=== PATIENT | male | born 1945 | race Caucasian/White ===

== ENCOUNTER 2022-11-13 22:47 | Inpatient (IN) | payer MEDICARE, BC ==
[~2022-11-13] VITALS: Ht 177.8 cm; Wt 76.4 kg
[2022-11-14] VITALS (11 sets, daily range): BP systolic 120–152; BP diastolic 53–81
[2022-11-14] MEDS ORDERED: fentaNYL/PF 50MCG/1 ML 2ML syringe IV ONE (01:10)
[2022-11-14 01:29] LABS: BASOPHILS # (AUTO) 0.1 X10'3 (0-0.2); BASOPHILS % (AUTO) 0.8 % (0-1); EOSINOPHILS # (AUTO) 0.2 X10'3 (0-0.9); EOSINOPHILS % (AUTO) 1.7 % (0-6); HEMATOCRIT 36.4 % (42.0-52.0); HEMOGLOBIN 11.9 g/dl (14.0-17.9); LYMPHOCYTES # (AUTO) 1.3 X10'3 (1.1-4.8); LYMPHOCYTES % (AUTO) 10.9 % (21-51); MEAN CORPUSCULAR HEMOGLOBIN 26.9 PG (27.0-31.0); MEAN CORPUSCULAR HGB CONC 32.6 g/dL (33.0-36.5); MEAN CORPUSCULAR VOLUME 82.7 FL (78-98); MONOCYTES # (AUTO) 0.6 X10'3 (0-0.9); MONOCYTES % (AUTO) 5.4 % (2-12); NEUTROPHILS # (AUTO) 9.7 X10'3 (1.8-7.7); NEUTROPHILS % (AUTO) 81.2 % (42-75); PLATELET COUNT 357 X10'3 (140-440); RED CELL DISTRIBUTION WIDTH 18.9 % (11.5-14.5)
[2022-11-14 01:42] LABS: APTT 46 SECONDS (22-32)
[2022-11-14 01:44] LABS: ALBUMIN 3.1 G/DL (3.4-5.0); ALBUMIN/GLOBULIN RATIO 0.7 (1.1-1.5); ANION GAP 9 (8-16); ASPARTATE AMINO TRANSFERASE 22 U/L (10-37); BILIRUBIN,TOTAL 0.2 MG/DL (0.1-1.0); BLOOD UREA NITROGEN 23 MG/DL (7-18); BUN/CREATININE RATIO 24.7 (10.0-20.0); CHLORIDE 104 MMOL/L (99-107); CREATININE 0.93 MG/DL (0.60-1.10); GLUCOSE 161 MG/DL (70-104); POTASSIUM 4.8 MMOL/L (3.5-5.1); SODIUM 142 MMOL/L (135-145); TOTAL CARBON DIOXIDE 28.6 MMOL/L (24-32); TOTAL PROTEIN 7.8 G/DL (6.4-8.2); eGFR 79 ML/MIN
[2022-11-14 01:45] LABS: ALANINE AMINOTRANSFERASE 34 U/L (12-78); ALKALINE PHOSPHATASE 95 IU/L (46-116)
[2022-11-14] MEDS ORDERED: morphine 4 MG/ML inj SYRINge IV ONE (02:15)
[2022-11-14] MEDS ORDERED: magnesium hydroxide 30ml (MOM) UD suspension PO PRN (02:35)
[2022-11-14] MEDS ORDERED: diphenhydrAMINE 25mg capsule PO PRN (02:35)
[2022-11-14] MEDS ORDERED: acetaminophen 325mg tablet PO PRN (02:35)
[2022-11-14] MEDS ORDERED: magnesium 4gm in 100ml NS 100 ML IV PRN (02:35)
[2022-11-14] MEDS ORDERED: potassium Cl 40MEQ/1/2NS 520ml 520 ML IV PRN (02:35)
[2022-11-14] MEDS ORDERED: morphine 2 MG/ML inj. syringe IV PRN ×7 (02:35→16:55)
[2022-11-14] MEDS ORDERED: potassium Cl 20 mEq SR tablet PO PRN ×2 (02:35)
[2022-11-14] MEDS ORDERED: ondansetron/PF 4mg/2ml inj IV PRN ×3 (02:35→16:55)
[2022-11-14] MEDS ORDERED: mag hydrox/Alum hydrox/simeth 30ml oral suspension PO PRN (02:35)
[2022-11-14] MEDS ORDERED: ACET-1025 PO (02:39)
[2022-11-14] MEDS ORDERED: NEOM30OI17 TOP (02:39)
[2022-11-14] MEDS ORDERED: IBUP-1984 PO (02:39)
[2022-11-14] MEDS ORDERED: DEXTROSE 15 GM of carb/4 tabs (each vial/BOTTLE has 4 tablets) PO PRN ×2 (02:40)
[2022-11-14] MEDS ORDERED: glucagon, human recombinant 1mg kit SUBCUT PRN (02:40)
[2022-11-14] MEDS ORDERED: MESSAGE TO PHARMACY PO ONE (02:40)
[2022-11-14] MEDS ORDERED: dextrose 50%-water 50ml dispensing syringe IV PRN ×2 (02:40)
[2022-11-14 02:42] LABS: PLATELET ESTIMATE NORMAL; ROULEAUX 1+
[2022-11-14 02:43] LABS: ELLIPTOCYTES FEW; POIKILOCYTOSIS FEW
[2022-11-14 02:44] LABS: ANISOCYTOSIS 2+
[2022-11-14 03:00] LABS: HEMOGLOBIN A1C 7.5 % (4.5-6.2)
[2022-11-14] MEDS: potassium cl 20mEq in 1/2 NS 1,000 ML IV SCH ×2 (03:59→22:35)
[2022-11-14 04:18] LABS: CLARITY,URINE CLEAR (Clear); COLOR,URINE YELLOW (Yellow); GLUCOSE, URINE >=1000 mg/dl (Neg); KETONES,URINE TRACE mg/dl (Neg); LEUKOCYTE ESTERASE ,URINE NEGATIVE (Neg); NITRITES, URINE NEGATIVE (Neg); OCCULT BLOOD,URINE NEGATIVE (Neg); PH,URINE 5.5 (4.8-8.0); PROTEIN,URINE NEGATIVE (Neg); UROBILINOGEN,URINE 0.2 E.U/dL (0.2-1.0)
[2022-11-14 04:24] LABS: UA COLLECTION TYPE URINAL
[2022-11-14 04:25] LABS: WBC,URINE 0-4 /HPF (0-4)
[2022-11-14 04:26] LABS: BACTERIA,URINE FEW /HPF (Neg); RBC,URINE 0-2 /HPF (0-2); SQUAMOUS EPITHELIAL CELL,UR FEW /LPF (FEW)
[2022-11-14 06:16] LABS: MAGNESIUM 1.5 MG/DL (1.5-2.4)
--- NOTE | 2022-11-14 07:45 | NUR ---
Received report from ED RNSai
[2022-11-14] MEDS: enoxaparin 100mg/ml syringe SUBCUT SCH ×2 (08:00→20:14)
[2022-11-14] MEDS: K and/or MAG REPLACEMENT MC SCH ×2 (08:00→20:00)
[2022-11-14] MEDS: sodium chloride 0.45% 1,000 ML IV SCH (09:03)
[2022-11-14] MEDS: docusate sod 100mg capsule PO SCH ×2 (09:04→20:14)
[2022-11-14] MEDS: morphine 4 MG/ML inj SYRINge IV PRN ×2 (09:04→13:20)
[2022-11-14 09:14] LABS: BASOPHILS # (AUTO) 0.1 X10'3 (0-0.2); BASOPHILS % (AUTO) 0.6 % (0-1); EOSINOPHILS # (AUTO) 0.2 X10'3 (0-0.9); EOSINOPHILS % (AUTO) 2.1 % (0-6); HEMATOCRIT 35.5 % (42.0-52.0); HEMOGLOBIN 11.3 g/dl (14.0-17.9); LYMPHOCYTES # (AUTO) 1.2 X10'3 (1.1-4.8); LYMPHOCYTES % (AUTO) 11.1 % (21-51); MEAN CORPUSCULAR HEMOGLOBIN 26.2 PG (27.0-31.0); MEAN CORPUSCULAR HGB CONC 31.9 g/dL (33.0-36.5); MEAN PLATELET VOLUME 7.1 FL (7.4-10.4); MONOCYTES % (AUTO) 8.5 % (2-12); NEUTROPHILS # (AUTO) 8.7 X10'3 (1.8-7.7); NEUTROPHILS % (AUTO) 77.7 % (42-75); PLATELET COUNT 334 X10'3 (140-440); RED BLOOD COUNT 4.33 X10'6 (4.70-6.10); RED CELL DISTRIBUTION WIDTH 18.7 % (11.5-14.5); WHITE BLOOD COUNT 11.2 X10'3 (4.5-11.0)
[2022-11-14 09:25] LABS: ALANINE AMINOTRANSFERASE 24 U/L (12-78); ALBUMIN 3.1 G/DL (3.4-5.0); ALBUMIN/GLOBULIN RATIO 0.7 (1.1-1.5); ALKALINE PHOSPHATASE 92 IU/L (46-116); ANION GAP 9 (8-16); ASPARTATE AMINO TRANSFERASE 24 U/L (10-37); BILIRUBIN,TOTAL 0.3 MG/DL (0.1-1.0); CALCIUM 8.8 MG/DL (8.5-10.1); CHLORIDE 103 MMOL/L (99-107); CREATININE 0.73 MG/DL (0.60-1.10); GLUCOSE 142 MG/DL (70-104); POTASSIUM 4.3 MMOL/L (3.5-5.1); SODIUM 139 MMOL/L (135-145); TOTAL CARBON DIOXIDE 26.9 MMOL/L (24-32); TOTAL PROTEIN 7.8 G/DL (6.4-8.2); eGFR > 90 ML/MIN
[2022-11-14 09:29] LABS: BLOOD UREA NITROGEN 24 MG/DL (7-18); BUN/CREATININE RATIO 32.9 (10.0-20.0)
[2022-11-14] MEDS ORDERED: TRAZ-251 PO (13:35)
[2022-11-14] MEDS ORDERED: SOTA80TA46 PO (13:35)
[2022-11-14] MEDS ORDERED: NATE120T6 PO (13:35)
[2022-11-14] MEDS ORDERED: ATOR80TA PO (13:35)
[2022-11-14] MEDS ORDERED: WARF-55 PO (13:35)
[2022-11-14] MEDS ORDERED: LISI20TA28 PO (13:35)
[2022-11-14] MEDS ORDERED: DAPA5TAB PO (13:35)
[2022-11-14] MEDS ORDERED: METF-436 PO (13:35)
[2022-11-14] MEDS ORDERED: traZODone 50mg tablet PO PRN (14:40)
[2022-11-14] MEDS ORDERED: lisinopril 20mg tablet PO SCH (14:40)
[2022-11-14] MEDS ORDERED: ROPIVAcaine 0.5% (5mg/ml) 30ml vial ONE ×2 (16:39)
[2022-11-14] MEDS ORDERED: vancomycin 1,000mg inj ONE (16:40)
[2022-11-14] MEDS ORDERED: meperidine/PF 25mg/ml syringe IV PRN ×3 (16:50)
[2022-11-14] MEDS ORDERED: ringers solution, lacted 1,000 ML IV SCH ×2 (16:50→16:55)
[2022-11-14] MEDS ORDERED: morphine 4 MG/ML inj SYRINge IV PRN ×2 (16:50→16:55)
[2022-11-14] MEDS ORDERED: tranexamic acid inj. 1,000 MG in normal saline 100ml IV soln 90 ML IV ONE (16:50)
[2022-11-14] MEDS ORDERED: proCHLORperazine 10 MG/2 ml inj IV PRN (16:50)
[2022-11-14] MEDS ORDERED: fentaNYL/PF 50MCG/1 ML 2ML syringe IV PRN ×2 (16:55)
[2022-11-14] MEDS ORDERED: labetalol 20mg/4ml (5mg/ml) syringe IV PRN (16:55)
[2022-11-14] MEDS ORDERED: hydrALAZINE 20mg/ml inj. IV PRN (16:55)
[2022-11-14] MEDS ORDERED: midazolam 1 mg/ML 2ml injection ONE (16:57)
[2022-11-14] MEDS ORDERED: fentaNYL /PF 50mcg/ml 5ml ampule ONE (16:57)
[2022-11-14] MEDS ORDERED: propofol inj 20 ML IV ONE (17:26)
[2022-11-14] MEDS ORDERED: ceFAZolin 1000mg inj ONE ×2 (17:26)
[2022-11-14] MEDS ORDERED: albumin (Human) 5% 250ml 250 ML IV ONE (17:27)
--- NOTE | 2022-11-14 18:14 | NUR ---
Received from OR via HOSPITAL BED, accompanied by Anesthesiologist and report given by Anesthesiologist. PT WAKING UP. NO S/S OF PAIN. VSS. PT PRESENTS WITH PIV 20G LEFT FOREARM, RIGHT HIP MAUREEN DRESSING C/D/I, RIGHT DISTAL PULSE NOTED. STRATTON CATHETER DRAINING CLEAR YELLOW URINE. Addendum: 11/14/22 at 1827 by Juan Diego Oliva RN Amended: Links added.
--- NOTE | 2022-11-14 18:20 | NUR ---
Problems reprioritized. Patient report given, questions answered & plan of care reviewed with JAYNE Baptiste.
--- NOTE | 2022-11-14 18:44 | NUR ---
PATIENT HAS MET ALL CRITERIA FOR TRANSFER TO THE SURGICAL FLOOR. VSS. DRESSINGS INTACT. BED LOW, CALL LIGHT PRESENT AND 2 RAILS UP. RN PRESENT TO ACCEPT CARE OF PATIENT AND REPORT HAS BEEN CALLED. ALL QUESTIONS ANSWERED TO ACCEPTING RN. Addendum: 11/14/22 at 1859 by Juan Diego Oliva RN Amended: Links added.
[2022-11-14] MEDS: sotalol 80mg tablet PO SCH (20:14)
[2022-11-14] MEDS: insulin glargine (Lantus) pen - multi-dose SQ SCH (21:00)
[2022-11-15] MEDS: HYDROcodone/acetaminophen 10/325mg tab PO PRN ×5 (01:42→22:44)
[2022-11-15] MEDS: sodium chloride 0.45% 1,000 ML IV SCH (04:08)
[2022-11-15 05:00] VITALS: BP 100/62
[2022-11-15 05:31] LABS: ALANINE AMINOTRANSFERASE 29 U/L (12-78); ALBUMIN 2.8 G/DL (3.4-5.0); ALBUMIN/GLOBULIN RATIO 0.7 (1.1-1.5); ALKALINE PHOSPHATASE 74 IU/L (46-116); ANION GAP 10 (8-16); ASPARTATE AMINO TRANSFERASE 50 U/L (10-37); BILIRUBIN,TOTAL 0.7 MG/DL (0.1-1.0); BLOOD UREA NITROGEN 20 MG/DL (7-18); BUN/CREATININE RATIO 33.9 (10.0-20.0); CALCIUM 8.1 MG/DL (8.5-10.1); CHLORIDE 98 MMOL/L (99-107); CREATININE 0.59 MG/DL (0.60-1.10); GLUCOSE 153 MG/DL (70-104); MAGNESIUM 1.2 MG/DL (1.5-2.4); POTASSIUM 4.1 MMOL/L (3.5-5.1); SODIUM 134 MMOL/L (135-145); TOTAL CARBON DIOXIDE 26.2 MMOL/L (24-32); TOTAL PROTEIN 6.8 G/DL (6.4-8.2); eGFR > 90 ML/MIN
[2022-11-15 05:40] LABS: BASOPHILS # (AUTO) 0.1 X10'3 (0-0.2); BASOPHILS % (AUTO) 0.4 % (0-1); EOSINOPHILS # (AUTO) 0.1 X10'3 (0-0.9); EOSINOPHILS % (AUTO) 0.9 % (0-6); HEMATOCRIT 31.1 % (42.0-52.0); LYMPHOCYTES # (AUTO) 1.3 X10'3 (1.1-4.8); LYMPHOCYTES % (AUTO) 9.6 % (21-51); MEAN CORPUSCULAR HEMOGLOBIN 26.5 PG (27.0-31.0); MEAN CORPUSCULAR HGB CONC 32.1 g/dL (33.0-36.5); MEAN CORPUSCULAR VOLUME 82.6 FL (78-98); MEAN PLATELET VOLUME 7.1 FL (7.4-10.4); MONOCYTES % (AUTO) 7.3 % (2-12); NEUTROPHILS # (AUTO) 10.7 X10'3 (1.8-7.7); NEUTROPHILS % (AUTO) 81.8 % (42-75); PLATELET COUNT 340 X10'3 (140-440); RED BLOOD COUNT 3.77 X10'6 (4.70-6.10); RED CELL DISTRIBUTION WIDTH 18.1 % (11.5-14.5); WHITE BLOOD COUNT 13.1 X10'3 (4.5-11.0)
--- NOTE | 2022-11-15 06:40 | NUR ---
Patient in room [facility]. I have received report from JAYNE Baptiste and had the opportunity to ask questions and assume patient care.
[2022-11-15] MEDS: sotalol 80mg tablet PO SCH ×2 (07:57→19:13)
[2022-11-15] MEDS: lisinopril 20mg tablet PO SCH (07:57)
[2022-11-15] MEDS ORDERED: Dapagliflozin Propanediol (Farxiga) 5 MG PO SCH (08:00)
[2022-11-15] MEDS: K and/or MAG REPLACEMENT MC SCH ×2 (08:04→20:00)
[2022-11-15] MEDS: normal saline 1000ml 1,000 ML IV SCH (08:16)
[2022-11-15] MEDS: atorvastatin 20mg tablet PO SCH (08:17)
[2022-11-15] MEDS: docusate sod 100mg capsule PO SCH ×2 (08:19→19:13)
[2022-11-15] MEDS: magnesium Cl slow-release 64mg tablet PO PRN ×2 (08:20→19:21)
[2022-11-15] MEDS: enoxaparin 100mg/ml syringe SUBCUT SCH ×2 (08:27→19:14)
--- NOTE | 2022-11-15 08:59 | NUR ---
Per EMR pt with T2DM, well controlled for geriatric age with A1c 7.5%. DM education not warranted at this time. Will continue to follow. Addendum: 11/15/22 at [address] Amended: Links added.
[2022-11-15 10:00] VITALS: BP 119/58
[2022-11-15 17:00] VITALS: BP 117/60
[2022-11-15] MEDS: insulin Lispro (HumaLOG) vial - multi-dose SQ SCH (19:16)
[2022-11-15] MEDS: insulin glargine (Lantus) pen - multi-dose SQ SCH (21:14)
[2022-11-15 22:00] VITALS: BP 108/57
[2022-11-16] MEDS: HYDROcodone/acetaminophen 10/325mg tab PO PRN ×4 (02:29→20:02)
[2022-11-16] MEDS: normal saline 1000ml 1,000 ML IV SCH ×2 (05:46→23:55)
[2022-11-16 06:00] VITALS: BP 128/65
--- NOTE | 2022-11-16 06:00 | NUR ---
Problems reprioritized. Patient report given, questions answered & plan of care reviewed with JAYNE An.
--- NOTE | 2022-11-16 06:50 | NUR ---
Patient in room [facility]. I have received report from [place] GODOY and had the opportunity to ask questions and assume patient care.
[2022-11-16 07:17] LABS: BASOPHILS # (AUTO) 0.1 X10'3 (0-0.2); BASOPHILS % (AUTO) 0.6 % (0-1); EOSINOPHILS # (AUTO) 0.2 X10'3 (0-0.9); EOSINOPHILS % (AUTO) 1.5 % (0-6); HEMATOCRIT 23.7 % (42.0-52.0); HEMOGLOBIN 7.7 g/dl (14.0-17.9); LYMPHOCYTES # (AUTO) 1.7 X10'3 (1.1-4.8); MEAN CORPUSCULAR HEMOGLOBIN 26.9 PG (27.0-31.0); MEAN CORPUSCULAR HGB CONC 32.5 g/dL (33.0-36.5); MEAN CORPUSCULAR VOLUME 82.6 FL (78-98); MEAN PLATELET VOLUME 7.1 FL (7.4-10.4); MONOCYTES # (AUTO) 1.6 X10'3 (0-0.9); MONOCYTES % (AUTO) 12.1 % (2-12); NEUTROPHILS # (AUTO) 9.4 X10'3 (1.8-7.7); NEUTROPHILS % (AUTO) 72.8 % (42-75); PLATELET COUNT 284 X10'3 (140-440); RED BLOOD COUNT 2.86 X10'6 (4.70-6.10); RED CELL DISTRIBUTION WIDTH 18.2 % (11.5-14.5); WHITE BLOOD COUNT 12.9 X10'3 (4.5-11.0)
[2022-11-16 07:42] LABS: ALANINE AMINOTRANSFERASE 25 U/L (12-78); ALBUMIN 2.4 G/DL (3.4-5.0); ALBUMIN/GLOBULIN RATIO 0.6 (1.1-1.5); ALKALINE PHOSPHATASE 72 IU/L (46-116); ANION GAP 7 (8-16); ASPARTATE AMINO TRANSFERASE 34 U/L (10-37); BILIRUBIN,TOTAL 0.5 MG/DL (0.1-1.0); BLOOD UREA NITROGEN 27 MG/DL (7-18); BUN/CREATININE RATIO 35.1 (10.0-20.0); CALCIUM 8.5 MG/DL (8.5-10.1); CHLORIDE 98 MMOL/L (99-107); CREATININE 0.77 MG/DL (0.60-1.10); GLUCOSE 196 MG/DL (70-104); MAGNESIUM 1.5 MG/DL (1.5-2.4); POTASSIUM 3.8 MMOL/L (3.5-5.1); SODIUM 132 MMOL/L (135-145); TOTAL CARBON DIOXIDE 27.5 MMOL/L (24-32); TOTAL PROTEIN 6.3 G/DL (6.4-8.2); eGFR > 90 ML/MIN
[2022-11-16] MEDS: K and/or MAG REPLACEMENT MC SCH ×2 (08:00→20:00)
[2022-11-16] MEDS: docusate sod 100mg capsule PO SCH ×2 (09:19→20:02)
[2022-11-16] MEDS: magnesium Cl slow-release 64mg tablet PO PRN (09:19)
[2022-11-16] MEDS: sotalol 80mg tablet PO SCH ×2 (09:20→20:00)
[2022-11-16] MEDS: atorvastatin 20mg tablet PO SCH (09:20)
[2022-11-16] MEDS: enoxaparin 100mg/ml syringe SUBCUT SCH (09:21)
[2022-11-16] MEDS: lisinopril 20mg tablet PO SCH (09:21)
[2022-11-16] MEDS: insulin Lispro (HumaLOG) vial - multi-dose SQ SCH ×3 (09:32→18:29)
[2022-11-16 11:15] VITALS: BP 97/45
[2022-11-16 16:36] LABS: MEAN CORPUSCULAR HEMOGLOBIN 27.1 PG (27.0-31.0); MEAN CORPUSCULAR HGB CONC 32.8 g/dL (33.0-36.5); MEAN CORPUSCULAR VOLUME 82.5 FL (78-98); MEAN PLATELET VOLUME 6.9 FL (7.4-10.4); PLATELET COUNT 293 X10'3 (140-440); RED BLOOD COUNT 2.49 X10'6 (4.70-6.10); RED CELL DISTRIBUTION WIDTH 17.9 % (11.5-14.5); WHITE BLOOD COUNT 14.5 X10'3 (4.5-11.0)
[2022-11-16 16:39] LABS: HEMATOCRIT 20.5 % (42.0-52.0); HEMOGLOBIN 6.7 g/dl (14.0-17.9)
--- NOTE | 2022-11-16 16:44 | NUR ---
no acute changes this shift. Patient continues to refuse getting out of bed with nursing staff. Turned [id number]. Wound Vac intact @125 mm/gh. FC in place. All needs met by staff. All safety measures in place and call light in reach. Will continue to monitor. Addendum: 11/16/22 at 1646 by Nataliya Godoy LVN documentation is on wrong patient.
[2022-11-16 18:00] VITALS: BP 79/43
--- NOTE | 2022-11-16 18:10 | NUR ---
Patient in room [facility]. I have received report from KATY An and had the opportunity to ask questions and assume patient care. Patient sitting up in bed eating dinner, no needs at this time. I will continue to monitor and watch for blood transfusion orders.
[2022-11-16] MEDS: insulin glargine (Lantus) pen - multi-dose SQ SCH (21:53)
[2022-11-16 22:00] VITALS: BP 88/38
[2022-11-16 23:33] VITALS: BP 76/39
[2022-11-16 23:45] VITALS: BP 78/39
[2022-11-17] VITALS (12 sets, daily range): BP systolic 59–141; BP diastolic 26–120
[2022-11-17] MEDS: normal saline 1000ml 1,000 ML IV SCH (02:43)
[2022-11-17 05:28] LABS: BASOPHILS % (AUTO) 0.4 % (0-1); EOSINOPHILS # (AUTO) 0.2 X10'3 (0-0.9); EOSINOPHILS % (AUTO) 1.3 % (0-6); HEMATOCRIT 24.9 % (42.0-52.0); LYMPHOCYTES # (AUTO) 1.3 X10'3 (1.1-4.8); LYMPHOCYTES % (AUTO) 9.5 % (21-51); MEAN CORPUSCULAR HEMOGLOBIN 25.7 PG (27.0-31.0); MEAN CORPUSCULAR HGB CONC 32.2 g/dL (33.0-36.5); MEAN CORPUSCULAR VOLUME 79.8 FL (78-98); MEAN PLATELET VOLUME 7.1 FL (7.4-10.4); MONOCYTES # (AUTO) 1.2 X10'3 (0-0.9); MONOCYTES % (AUTO) 8.8 % (2-12); PLATELET COUNT 288 X10'3 (140-440); RED BLOOD COUNT 3.12 X10'6 (4.70-6.10); RED CELL DISTRIBUTION WIDTH 19.3 % (11.5-14.5); WHITE BLOOD COUNT 13.7 X10'3 (4.5-11.0)
[2022-11-17 05:51] LABS: ALANINE AMINOTRANSFERASE 27 U/L (12-78); ALBUMIN 2.3 G/DL (3.4-5.0); ALBUMIN/GLOBULIN RATIO 0.6 (1.1-1.5); ALKALINE PHOSPHATASE 108 IU/L (46-116); ANION GAP 7 (8-16); ASPARTATE AMINO TRANSFERASE 59 U/L (10-37); BILIRUBIN,TOTAL 1.2 MG/DL (0.1-1.0); BLOOD UREA NITROGEN 32 MG/DL (7-18); BUN/CREATININE RATIO 36.4 (10.0-20.0); CALCIUM 8.3 MG/DL (8.5-10.1); CHLORIDE 99 MMOL/L (99-107); CREATININE 0.88 MG/DL (0.60-1.10); GLUCOSE 182 MG/DL (70-104); MAGNESIUM 1.7 MG/DL (1.5-2.4); POTASSIUM 3.7 MMOL/L (3.5-5.1); SODIUM 131 MMOL/L (135-145); TOTAL CARBON DIOXIDE 25.2 MMOL/L (24-32); TOTAL PROTEIN 6.3 G/DL (6.4-8.2); eGFR 84 ML/MIN
--- NOTE | 2022-11-17 06:25 | NUR ---
Problems reprioritized. Patient report given, questions answered & plan of care reviewed with JAYNE Rizzo.
[2022-11-17] MEDS: K and/or MAG REPLACEMENT MC SCH ×2 (08:00→19:25)
[2022-11-17] MEDS: sotalol 80mg tablet PO SCH ×2 (08:19→20:14)
[2022-11-17] MEDS: docusate sod 100mg capsule PO SCH ×2 (08:19→20:14)
[2022-11-17] MEDS: HYDROcodone/acetaminophen 10/325mg tab PO PRN (08:19)
[2022-11-17] MEDS: lisinopril 20mg tablet PO SCH (08:20)
[2022-11-17] MEDS: atorvastatin 20mg tablet PO SCH (08:21)
[2022-11-17] MEDS: insulin Lispro (HumaLOG) vial - multi-dose SQ SCH ×3 (08:28→20:31)
--- NOTE | 2022-11-17 11:03 | NUR ---
Pagefidencio Mclaughlin: Francisco J GonzalezA. FYI: pt had orthostatic HOTN with PT. sittin/39 HR 92, standing 59/26 HR 99, lying 95/41 HR 86, symptomatic. So [id number] Addendum: 11/17/22 at 1125 by So Quiñonez RN Natalie Tavarez: Francisco J GonzalezA. Trendelenberged pt and BP now 80/38 MAP 52, HR 83. Pt symptomatic, pain 05/19. So [id number]
--- NOTE | 2022-11-17 12:50 | NUR ---
Circled drainage on dressing Addendum: 11/17/22 at 1414 by So Quiñonez RN Natalie Marx 344A. Manual BP 92/35. So 8419
[2022-11-17] MEDS ORDERED: lisinopril 5mg tablet PO SCH (16:30)
[2022-11-17] MEDS ORDERED: lisinopril 20mg tablet PO SCH (16:30)
[2022-11-17] MEDS: insulin glargine (Lantus) pen - multi-dose SQ SCH (20:33)
[2022-11-18 06:00] VITALS: BP 139/67
[2022-11-18 06:02] LABS: BASOPHILS % (AUTO) 0.2 % (0-1); EOSINOPHILS # (AUTO) 0.1 X10'3 (0-0.9); EOSINOPHILS % (AUTO) 0.6 % (0-6); HEMATOCRIT 24.1 % (42.0-52.0); LYMPHOCYTES % (AUTO) 8.3 % (21-51); MEAN CORPUSCULAR HEMOGLOBIN 27.4 PG (27.0-31.0); MEAN CORPUSCULAR HGB CONC 33.3 g/dL (33.0-36.5); MEAN CORPUSCULAR VOLUME 82.3 FL (78-98); MEAN PLATELET VOLUME 6.8 FL (7.4-10.4); MONOCYTES # (AUTO) 1.1 X10'3 (0-0.9); MONOCYTES % (AUTO) 9.3 % (2-12); NEUTROPHILS # (AUTO) 9.3 X10'3 (1.8-7.7); NEUTROPHILS % (AUTO) 81.6 % (42-75); PLATELET COUNT 345 X10'3 (140-440); RED BLOOD COUNT 2.93 X10'6 (4.70-6.10); WHITE BLOOD COUNT 11.4 X10'3 (4.5-11.0)
[2022-11-18 06:16] LABS: ALANINE AMINOTRANSFERASE 43 U/L (12-78); ALBUMIN 2.1 G/DL (3.4-5.0); ALBUMIN/GLOBULIN RATIO 0.5 (1.1-1.5); ALKALINE PHOSPHATASE 120 IU/L (46-116); ANION GAP 10 (8-16); ASPARTATE AMINO TRANSFERASE 67 U/L (10-37); BILIRUBIN,TOTAL 0.6 MG/DL (0.1-1.0); BLOOD UREA NITROGEN 16 MG/DL (7-18); BUN/CREATININE RATIO 23.2 (10.0-20.0); CALCIUM 8.3 MG/DL (8.5-10.1); CHLORIDE 101 MMOL/L (99-107); CREATININE 0.69 MG/DL (0.60-1.10); GLUCOSE 172 MG/DL (70-104); MAGNESIUM 1.5 MG/DL (1.5-2.4); POTASSIUM 3.6 MMOL/L (3.5-5.1); SODIUM 136 MMOL/L (135-145); TOTAL CARBON DIOXIDE 24.8 MMOL/L (24-32); TOTAL PROTEIN 6.4 G/DL (6.4-8.2); eGFR > 90 ML/MIN
--- NOTE | 2022-11-18 06:28 | NUR ---
Patient in room [facility]. I have received report from Leny GODOY and had the opportunity to ask questions and assume patient care.
[2022-11-18 07:30] VITALS: BP 113/62
[2022-11-18] MEDS: K and/or MAG REPLACEMENT MC SCH (08:00)
[2022-11-18 08:30] VITALS: BP_SYST 102; BP_SYST 93; BP_DIAS 37; BP_DIAS 60
--- NOTE | 2022-11-18 09:11 | NUR ---
PAGER ID: [phone] MESSAGE: [id number] Bret Marx: Pt HR 130-160, please call regarding this TY Deanne Hare Addendum: 11/18/22 at 0935 by Deanne Simpson LVN Received order for STAT EKG via telephone from Dr. Tavarez, order to hold sotalol and lisinopril at this time. PAGER ID: [phone] MESSAGE: Bret Abbott- EKG obtained Addendum: 11/18/22 at 1012 by Deanne Simpson LVN PAGER ID: [phone] MESSAGE: Bret Abbott- HR remains high 146. EKG complete in chart. Deanne Hare Addendum: 11/18/22 at 1036 by Deanne Simpson LVN responded, stated on her way to read ANABELLG
[2022-11-18] MEDS: atorvastatin 20mg tablet PO SCH (09:27)
[2022-11-18] MEDS: docusate sod 100mg capsule PO SCH (09:27)
[2022-11-18] MEDS: insulin Lispro (HumaLOG) vial - multi-dose SQ SCH ×2 (09:29→13:40)
[2022-11-18 10:00] VITALS: BP 119/65
--- NOTE | 2022-11-18 10:27 | NUR ---
Phoned Dr Tavarez on cell phone re: EKG interpretation by is pending, however [facility] Rtn calls pending. Addendum: 11/18/22 at 1035 by Deanne Simpson LVN Dr. Tavarez called and stated that she is on her way to read EKG
--- NOTE | 2022-11-18 10:35 | NUR ---
PAGER ID: [phone] MESSAGE: Re: Francisco J 344A STAT EKG is ready to be read. Where are you to sign it? Thanks, Cheri and Deanne. [id number] responded @ 1034 to above stating she will come to unit to read EKG. Addendum: 11/18/22 at 1048 by Deanne Simpson LVN MD Dr. Tavarez on unit reading EKG, received verbal orders for tele, 1L NS bolus, status post bolus order CBC and repeat EKG. Noted and carrying out Addendum: 11/18/22 at 1134 [address] Deanne Simpson LVN Dr. Tavarez called Charge nurse Sahara GODOY, provided order to d/c bolus, administer labetolol- hold lisinopril, continue with CBC, complete EKG at 3pm, and start tele for monitoring. Noted, carrying out
[2022-11-18] MEDS ORDERED: normal saline 1000ml 1,000 ML IV ONE (10:50)
[2022-11-18 11:02] VITALS: BP 116/58
[2022-11-18] MEDS: sotalol 80mg tablet PO SCH (11:04)
[2022-11-18 11:30] LABS: BASOPHILS % (AUTO) 0.1 % (0-1); EOSINOPHILS % (AUTO) 0.2 % (0-6); HEMATOCRIT 24.7 % (42.0-52.0); LYMPHOCYTES # (AUTO) 1.1 X10'3 (1.1-4.8); LYMPHOCYTES % (AUTO) 8.1 % (21-51); MEAN CORPUSCULAR HEMOGLOBIN 25.9 PG (27.0-31.0); MEAN CORPUSCULAR HGB CONC 32.3 g/dL (33.0-36.5); MEAN PLATELET VOLUME 6.6 FL (7.4-10.4); MONOCYTES # (AUTO) 1.2 X10'3 (0-0.9); NEUTROPHILS # (AUTO) 10.7 X10'3 (1.8-7.7); NEUTROPHILS % (AUTO) 82.6 % (42-75); PLATELET COUNT 355 X10'3 (140-440); RED BLOOD COUNT 3.08 X10'6 (4.70-6.10); RED CELL DISTRIBUTION WIDTH 19.9 % (11.5-14.5)
[2022-11-18] MEDS ORDERED: ondansetron 4mg rapidly disintigrating tab PO PRN (13:40)
--- NOTE | 2022-11-18 14:57 | NUR ---
PAGER ID: [phone] MESSAGE: [id number] Bret Marx: 2nd EKG performed and completed. Can you please come review? Clement Hare Addendum: 11/18/22 at 1526 by Deanne Simpson LVN No response, 2nd page sent PAGER ID: [phone] MESSAGE: [id number]: Bret Marx: Pt has sampler pickup at 530. Can you please review EKG and let me know if we are continuing discharge? CLEMENT Alicea 54Jacqueline
[2022-11-18] MEDS: normal saline 1000ml 1,000 ML IV SCH (15:55)
--- NOTE | 2022-11-18 16:30 | NUR ---
I have reviewed and agree with interventions, assessments and documentation by Deanne Doss LVN.
[2022-11-18 16:55] VITALS: BP 102/52
--- NOTE | 2022-11-18 16:55 | NUR ---
Vs obtained prior to discharge. HR 133, MD Dr. Tavarez notified, received telephone orders to continue with discharge and for jaime catheter to remain in place upon discharge.
--- NOTE | 2022-11-18 17:38 | NUR ---
Patient is stable/appropriate for transfer. HR remains tachycardic 133, continues to be asymptomatic- denies dizziness, SOB, headache, chest pain, and palpitations. MD was notified and aware, ordered to continue with transfer to [facility]. Tele discontinued and PIV removed, cannula intact. Patient tolerated well. Srinivasan catheter in place and draining to gravity as ordered by MD. Leg immobilizer in place to R leg. All belongings accounted for and sent with patient. Transport staff given transfer packet. Patient transferred to [facility] and assisted out of facility by [employer] transport staff.
--- NOTE | 2022-11-18 17:47 | NUR ---
Report called to Tiera GODOY at [facility]
== END 2022-11-18 17:39 | DRG 522 ==
LOC: ER 22:48 → ED HOLD 11-14 02:37 → SUR 3N 11-14 08:10 → UNDODISIN 11-18 17:39
PROVIDERS: ADMIT Internal Medicine; ATTEND Internal Medicine
PROC: 0SRR0JA Replacement of Right Hip Joint, Femoral Surface with Synthetic Substitute, Uncemented, Open Approach (ICD-10-PCS; principal; 2022-11-14 16:56)
PROC: 30233N1 Transfusion of Nonautologous Red Blood Cells into Peripheral Vein, Percutaneous Approach (ICD-10-PCS; 2022-11-16)
DX: S72.011A Unspecified intracapsular fracture of right femur, initial encounter for closed fracture (principal); D62 Acute posthemorrhagic anemia; E87.1 Hypo-osmolality and hyponatremia; E11.9 Type 2 diabetes mellitus without complications; W01.0XXA Fall on same level from slipping, tripping and stumbling without subsequent striking against object, initial encounter; E78.00 Pure hypercholesterolemia, unspecified; I95.1 Orthostatic hypotension; I48.91 Unspecified atrial fibrillation; Z79.82 Long term (current) use of aspirin; Z85.038 Personal history of other malignant neoplasm of large intestine; Z87.891 Personal history of nicotine dependence; Z90.49 Acquired absence of other specified parts of digestive tract; Z79.899 Other long term (current) drug therapy; Y93.89 Activity, other specified; Y92.89 Other specified places as the place of occurrence of the external cause; Y99.8 Other external cause status
CPT/HCPCS: 36415; 36430; 71045; 73501; 73502; 80053; 81001; 82948; 83036; 83735; 85008; 85025; 85027; 85610; 85730; 86885; 86900; 86901; 86920; 87081; 93005; 97110; 97161; 97530; 99285; A4346; A4615; A4649; A5200; A6212; A6258; A6454; A7000; C1776; G0378; J0690; J1650; J1815; J2250; J2270; J2704; J2795; J3010; J3370; J3480; J3490; J7030; J7040; J7120; P9016; P9045